=== PATIENT | female | born 1930 | race Caucasian/White ===

== ENCOUNTER → 2018-12-10 | Outpatient (CLI) | payer MEDICARE ==
[~2018-12-10] MED LIST: RT-ALBUTEROL SULF 2.5 MG/3 ML PRE-MIX VIAL INH ONE
--- NOTE | 2018-12-10 13:08 | Diagnostic Imaging Report ---
PROCEDURE: CT chest without contrast. TECHNIQUE: Multiple contiguous axial images were obtained through the chest without the use of intravenous contrast. Auto Exposure Controls were utilized during the CT exam to meet ALARA standards for radiation dose reduction. DATE: December 10, 2018. COMPARISON: None. INDICATION: 88-year-old female, cough, dyspnea. PROCEDURE: Axial noncontrasted CT images of the chest. Noncontrasted limits the evaluation of the mediastinum and vascular structures. FINDINGS: There is a 4 mm calcified right lower lobe granuloma on axial image 31. There is no identified noncalcified pulmonary nodule or lung mass. There are very mild dependent opacities in the right lower lobe compatible with atelectasis or scarring. There are also additional linear opacities in the lingula and left lower lobe likely reflecting scarring and/or atelectasis. There is no pneumothorax. There is no pleural effusion. The more central airways are patent. There are coronary artery calcifications and additional areas of atherosclerotic disease. There is no pericardial effusion. There are calcified right hilar and subcarinal lymph nodes likely reflecting sequela of prior granulomatous disease. There is no identified abnormally enlarged noncalcified mediastinal or axillary lymph node. There is cholelithiasis without evidence of acute cholecystitis. There is moderate to severe renal atrophy bilaterally. There is a low-attenuation left renal lesion on axial image 57, too small to characterize at 7 mm in size. There is no hydronephrosis. There is fatty replacement of the pancreatic parenchyma. The spleen is normal in size. Small splenic calcifications as well as small calcifications in the liver likely relate to prior granulomatous disease. There is probable mild wall thickening of the distal esophagus. There is a small to moderate-sized hiatal hernia. There is no identified abnormally enlarged lymph node in the abdomen which meets size criteria for adenopathy. There are multilevel degenerative changes of the spine. There is scoliosis. There is no identified acute bony abnormality. IMPRESSION: 1. Mild to moderate in size hiatal hernia with probable nonspecific wall thickening of the distal esophagus. 2. Sequela of prior granulomatous disease. 3. No identified acute cardiopulmonary abnormality. Dictated by: Dictated on workstation # [id number]
== END ==
LOC: RT 12:02
PROVIDERS: ATTEND Nurse Practitioner Family
DX: J98.4 Other disorders of lung (principal); R06.00 Dyspnea, unspecified; J30.9 Allergic rhinitis, unspecified; R06.89 Other abnormalities of breathing; R05 Cough; R09.02 Hypoxemia; N19 Unspecified kidney failure; K44.9 Diaphragmatic hernia without obstruction or gangrene
CPT/HCPCS: 71250; 94060; 94726; 94729